=== PATIENT | male | born 1985 | race Caucasian/White ===

== ENCOUNTER 2017-10-05 22:23 | Emergency (ER) | payer BC, OTHER ==
[~2017-10-05 22:23] MED LIST: GABA-549 PO; IBU800 PO; IBUP-1618 PO; IBUP600T22 PO; LOR5 PO; LOR5/325 PO; NO ROUTINE MEDS; OXYC-717 PO
[2017-10-05 22:32] VITALS: BP 133/83
[2017-10-05] MEDS ORDERED: IBUP600T22 PO (22:35)
--- NOTE | 2017-10-05 22:38 | ER Report ---
History and Physical Time Seen By MD: 22:40 Hx. of Stated Complaint: PLAYING SOCCER WITH KIDS AND CAUGHT TOE ON GROUND. NOW C/O INCREASE RIGHT FOOT PAIN HPI/ROS CHIEF COMPLAINT: foot pain HISTORY OF PRESENT ILLNESS: This is a 32 year old male. He was playing soccer earlier today with the kids. Went to kick the ball. Toe of shoe caught ground. Midfoot on inside is painful. Had been walking on it, but now more painful with weight bearing. Some tingling in the toes. Normal movement. Allergies: Coded Allergies: No Known Drug Allergies (Verified , 10/05/17) Home Meds Reported Medications Ibuprofen (IBUPROFEN) 600 Mg Tablet, 1 TAB PO Q6H, TAB 10/05/17 Discontinued Reported Medications Gabapentin (GABAPENTIN) 300 Mg Capsule, 300 MG PO HS, CAPSULE 02/12/14 [No Routine Meds] No Conflict Check, 0 Refills 08/13/09 Reviewed Nurses Notes: Yes Hx Smoking: No Smoking Status: Never Smoker Constitutional Vital Sign - Last 24 Hours 10/05/17 10/05/17 10/05/17 10/05/17 22:32 22:45 23:00 23:15 Temp 98.5 Pulse 94 84 77 75 Resp 18 B/P (MAP) 133/83 Pulse Ox 96 95 96 96 10/05/17 10/05/17 23:30 23:45 Pulse 80 83 Pulse Ox 96 95 Physical Exam General appearance: Patient is alert. No acute distress. Musculoskeletal: Right foot and ankle shows only mild swelling dorsal medial foot below the maleolus. There is no obvious deformity. No bruising. Medial malleolus is non-tender. Lateral malleolus is non-tender. Head of the fifth metatarsal is nontender. Tenderness with palpation over the medial foot. No tenderness with squeeze of the lower leg. Weight bearing: Weight bearing not tested due to pain. Neurologic: The patient has normal sensation distal to the injury. Active range of motion is intact, but with pain. Cardiovascular: Normal dorsalis pedis and posterior tibialis pulses. Normal capillary refill. Skin: No rash. No skin breakdown. DIFFERENTIAL DIAGNOSIS: After history and physical exam differential diagnosis was considered for foot injury including sprain, fracture, dislocation and soft tissue injury. Medical Decision Making EKG/Imaging Imaging Exam type: 3 views right foot History: Trauma, right mid foot pain Comparison: None. Findings: There is mild soft tissue swelling over the dorsum of the midfoot but no acute fracture. Metatarsals appear to be intact. Midfoot aligns with forefoot. IMPRESSION: 1. Soft tissue swelling along the dorsum of the right midfoot but no acute fracture. Report Dictated By: Jaime Arriola MD at 10/05/2017 11:32 PM ED Course/Re-evaluation ED Course x-rays of foot were negative. Foot sprain diagnosed and discussed with the patient the typical conservative measures for foot sprain. Recommended ibuprofen for pain. crutches provided. Decision to Disposition Date: Oct 06, 2017 Decision to Disposition Time: 00:03 Depart Departure Latest Vital Signs Vital Signs Date Time Temp Pulse Resp B/P (MAP) Pulse Ox O2 Delivery O2 Flow Rate FiO2 10/05/17 23:45 83 95 10/05/17 22:32 98.5 18 133/83 Impression: Primary Impression: Right foot sprain Condition: Improved Disposition: HOME OR SELF-CARE Patient Instructions: Foot Sprain (ED) Additional Instructions: Ibuprofen 200mg over the counter tablets, take 4 tablets three times a day with food. Apply ice 20 minutes every 1-2 hours while awake. An CLAY wrap can be used for compression to help reduce swelling. Rest the injured area, keep it elevated while at rest. Begin gentle range of motion exercises. Problem Qualifiers Primary Impression: Right foot sprain Encounter type: initial encounter Qualified Codes: S93.601A - Unspecified sprain of right foot, initial encounter SUSAN SANTIAGO MD Oct 05, 2017 22:38
--- NOTE | 2017-10-05 23:39 | RADIOLOGY IMAGING REPORT ---
FACILITY: [facility] [place] PATIENT NAME: Sukhi Golden : 1985 MR: [id number] V: [id number] EXAM DATE: ORDERING PHYSICIAN: SUSAN SANTIAGO TECHNOLOGIST: Location: [facility] Patient: Sukhi Golden : 1985 Visit/Account:[id number] Date of Sevice: 10/05/2017 Exam type: 3 views right foot History: Trauma, right mid foot pain Comparison: None. Findings: There is mild soft tissue swelling over the dorsum of the midfoot but no acute fracture. Metatarsals appear to be intact. Midfoot aligns with forefoot. IMPRESSION: 1. Soft tissue swelling along the dorsum of the right midfoot but no acute fracture. Report Dictated By: Jaime Arriola MD at 10/05/2017 11:32 PM Report E-Signed By: Jaime Arriola MD at 10/05/2017 11:35 PM WSN:[id number]
== END 2017-10-06 00:25 | disposition home or self-care (01) ==
LOC: ER 22:49
DX: S93.601A Unspecified sprain of right foot, initial encounter (principal)
CPT/HCPCS: 99282